=== PATIENT | female | born 1980 | race Caucasian/White ===

== ENCOUNTER 2022-04-25 22:57 | Inpatient (IN) | payer OTHER ==
[~2022-04-25] VITALS: Ht 160 cm; Wt 81.6 kg
[2022-04-26 00:16] LABS: HEMOGLOBIN 12.2 gm/dl (12.3-15.3); RED BLOOD COUNT 3.72 M/UL (4.00-5.10)
[2022-04-28] MEDS ORDERED: DOCUSATE SODIU250 MG PO (10:33)
[2022-04-28] MEDS ORDERED: IBUPROFEN600 MG PO (10:33)
== END 2022-04-28 11:31 | disposition home or self-care (01) | DRG 807 ==
LOC: GENOP 22:57 → OB 04-26 00:03
PROVIDERS: Obstetrics & Gynecology; ADMIT Obstetrics & Gynecology
PROC: 3E033VJ Introduction of Other Hormone into Peripheral Vein, Percutaneous Approach (ICD-10-PCS; principal; 2022-04-26)
PROC: 10E0XZZ Delivery of Products of Conception, External Approach (ICD-10-PCS; 2022-04-26)
PROC: 3E0234Z Introduction of Serum, Toxoid and Vaccine into Muscle, Percutaneous Approach (ICD-10-PCS; 2022-04-26)
DX: O42.02 Full-term premature rupture of membranes, onset of labor within 24 hours of rupture (principal); Z37.0 Single live birth; O48.0 Post-term pregnancy; O99.284 Endocrine, nutritional and metabolic diseases complicating childbirth; E28.2 Polycystic ovarian syndrome; Z3A.40 40 weeks gestation of pregnancy; Z23 Encounter for immunization
CPT/HCPCS: 36415; 85014; 85018; 85025; 90715; J2590